=== PATIENT | male | born 1990 | race Two or more races ===

== ENCOUNTER 2020-10-24 07:58 | Emergency (ER) | payer BC ==
--- NOTE | 2020-10-24 08:14 | EDM.PDOC ---
ED HPI GENERAL MEDICAL PROBLEM - General Chief Complaint: Lower Extremity Injury/Pain Stated Complaint: L KNEE PAIN Time Seen by Provider: 10/24/20 08:00 Source of Information: Reports: Patient History Limitations: Reports: No Limitations - History of Present Illness INITIAL COMMENTS - FREE TEXT/NARRATIVE: 30-year-old male no relevant past medical history presents with left knee pain following a slip injury this morning. Patient was walking outside and did not realize the sprinklers were on. He slipped and felt a popping sensation on the medial aspect of the left knee. He has since noted swelling to the area. He is able to bear weight on it but with pain. He is able to move it but again with pain. Denies hitting head or any other injuries. Left Knee Pain Score (Numeric/FACES): 8 - Related Data Allergies Allergy/AdvReac Type Severity Reaction Status Date / Time Penicillins Allergy Hives Verified 10/24/20 08:21 Home Meds: Home Meds Acetaminophen/oxyCODONE [Percocet 325-5 MG] 1 each PO Q4H PRN #12 tab 10/24/20 [Rx] Ibuprofen [Motrin] 600 mg PO Q6H PRN #20 tab 10/24/20 [Rx] Review of Systems - Review of Systems Review Of Systems: Comprehensive ROS is negative, except as noted in HPI. ED EXAM, GENERAL - Physical Exam Exam: See Below Exam Limited By: No Limitations General Appearance: Alert, WD/WN, No Apparent Distress Throat/Mouth: Normal Voice, No Airway Compromise Head: Atraumatic, Normocephalic Neck: Normal Inspection Respiratory/Chest: No Respiratory Distress, No Accessory Muscle Use Cardiovascular: Normal Peripheral Pulses Back Exam: Normal Inspection Extremities: Normal Inspection, Other (swelling to medial aspect L knee with +TTP, normal alignment of knee without palpable deformity) Neurological: Alert, Normal Cognition Psychiatric: Normal Affect, Normal Mood Skin Exam: Warm, Dry, Intact, Normal Color Course - Vital Signs Last Recorded V/S: Last Vital Signs Temp 97.6 F 10/24/20 08:22 Pulse 87 10/24/20 08:22 Resp 17 10/24/20 08:22 BP 127/80 10/24/20 08:22 Pulse Ox 98 10/24/20 08:22 - Orders/Labs/Meds Orders: Active Orders 24 hr Category Date Time Status DME for Discharge [COMM] Stat Oth 10/24/20 09:30 Ordered Meds: Medications Discontinued Medications Generic Name Dose Route Start Last Admin Trade Name Freq PRN Reason Stop Dose Admin Acetaminophen 1,000 mg 10/24/20 08:24 10/24/20 08:38 Acetaminophen 500 Mg Tab PO 10/24/20 08:25 1,000 mg ONETIME ONE Administration Ketorolac Tromethamine 30 mg 10/24/20 08:24 10/24/20 08:38 Ketorolac 30 Mg/Ml Sdv IM 10/24/20 08:25 30 mg ONETIME ONE Administration - Re-Assessments/Exams Free Text/Narrative Re-Assessment/Exam: 10/24/20 08:16 We will treat pain symptomatically. Will get x-ray imaging of the left knee. If negative there is a high suspicion of internal knee injuries will place a knee immobilizer and arrange for outpatient follow-up as patient will likely need MRI. 10/24/20 09:27 X-ray imaging is unremarkable. Will place patient in knee immobilizer and recommend follow-up with orthopedics. Patient placed on orthopedic follow-up list. Departure - Departure Time of Disposition: 09:27 Disposition: Home, Self-Care 01 Condition: Good Clinical Impression: Left knee injury Qualifiers: Encounter type: initial encounter Qualified Code(s): S89.92XA - Unspecified injury of left lower leg, initial encounter - Discharge Information Prescriptions: Ibuprofen [Motrin] 600 mg PO Q6H PRN #20 tab PRN Reason: Pain Acetaminophen/oxyCODONE [Percocet 325-5 MG] 1 each PO Q4H PRN #12 tab PRN Reason: Pain Instructions: How to Use a Knee Immobilizer, [id number] Referrals: PCP,None [Primary Care Provider] - Forms: ED Department Discharge Additional Instructions: Your x-ray imaging is negative for fracture or dislocation. However as we discussed I am concerned for an internal knee injury of one of the meniscus or ligaments of the knee. We have given you a knee immobilizer to use until you can follow-up with an orthopedist. You have been placed on orthopedics follow- up less so they should be calling you to help schedule an appointment. If they do not call to help you schedule an appointment have also provided their information below and you can call on Monday. Typically these types of injuries are best diagnosed with MRI imaging which unfortunately is not available from the emergency department. I've sent pain medicine to your pharmacy. [facility] [address] [place] [address], [address] [place], [place] [id number] The following information is given to patients seen in the emergency department who are being discharged to home. This information is to outline your options for follow-up care. We provide all patients seen in our emergency department with a follow-up referral. The need for follow-up, as well as the timing and circumstances, are variable depending upon the specifics of your emergency department visit. If you don't have a primary care physician on staff, we will provide you with a referral. We always advise you to contact your personal physician following an emergency department visit to inform them of the circumstance of the visit and for follow-up with them and/or the need for any referrals to a consulting specialist. The emergency department will also refer you to a specialist when appropriate. This referral assures that you have the opportunity for follow-up care with a specialist. All of these measure are taken in an effort to provide you with optimal care, which includes your follow-up. Under all circumstances we always encourage you to contact your private physician who remains a resource for coordinating your care. When calling for follow-up care, please make the office aware that this follow-up is from your recent emergency room visit. If for any reason you are refused follow-up, please contact the [facility] Emergency Department at and asked to speak to the emergency department charge nurse. Please follow up with your primary care physician. If you do not have a primary care physician, see below: [facility] [address] [place] [phone] [facility] [address] [place] [address] [facility] [address] [place] [id number] Sepsis Event Note (ED) - Focused Exam Vital Signs: Vital Signs Temp Pulse Resp BP Pulse Ox 10/24/20 08:22 97.6 F 87 17 127/80 98 - My Orders Last 24 Hours: My Active Orders 10/24/20 09:30 DME for Discharge [COMM] Stat - Assessment/Plan Last 24 Hours: My Active Orders 10/24/20 09:30 DME for Discharge [COMM] Stat
[2020-10-24] MEDS ORDERED: Ketorolac 30 MG/ML SDV IM ONE (08:24)
[2020-10-24] MEDS ORDERED: Acetaminophen 500 MG Tab PO ONE (08:24)
--- NOTE | 2020-10-24 09:26 | CR ---
INDICATION: Left knee injury. TECHNIQUE: Three views of the left knee. COMPARISON: None. FINDINGS: No soft tissue swelling, joint effusion, fracture or other abnormality. IMPRESSION: Negative left knee. Dictated by Farhat Mccray MD @ 10/24/2020 9:25:[address] Farhat Mccray @ Oct 24 2020 9:25AM
== END 2020-10-24 09:52 | disposition home or self-care (01) ==
LOC: MW.ED 07:58
DX: S89.92XA Unspecified injury of left lower leg, initial encounter (principal); Z88.0 Allergy status to penicillin; W18.40XA Slipping, tripping and stumbling without falling, unspecified, initial encounter
CPT/HCPCS: 73562; 96372; 99283; A9270; J1885; 99282

== ENCOUNTER 2024-02-08 21:35 | Emergency (ER) | payer BC | END 2024-02-08 23:16 | disposition home or self-care (01) | LOC: MW.ED 21:35 | DX: S63.277A Dislocation of unspecified interphalangeal joint of left little finger, initial encounter (principal); Z75.8 Other problems related to medical facilities and other health care; Z88.0 Allergy status to penicillin; W23.0XXA Caught, crushed, jammed, or pinched between moving objects, initial encounter | CPT/HCPCS: 73140-26-F4; 73140-F4; 99283 ==